=== PATIENT | female | born 2000 | race African-American/Black ===

== ENCOUNTER 2022-08-17 19:58 | Inpatient (IN) | payer SELFPAY ==
[~2022-08-17] VITALS: Ht 167.6 cm; Wt 74.2 kg
[2022-08-17 21:04] LABS: HEMOGLOBIN 12.3 g/dl (12.5-16.0); MEAN CELL VOLUME 87 fl (80.0-100.0); MEAN CORPUSCULAR HEMOGLOBIN 29 pg (27-31); MEAN CORPUSCULAR HGB CONC 33 g/dl (33.0-37.0); MEAN PLATELET VOLUME 10.7 fl (7.4-10.4); PLATELET COUNT 158 K/mm3 (130-400); RED BLOOD COUNT 4.23 M/mm3 (4.10-5.30); REDCELL DISTRIBUTION WIDTH-CV 12.8 % (11.5-14.5)
[2022-08-17 21:05] LABS: HEMATOCRIT 36.8 % (37.0-47.0)
[2022-08-17 21:20] LABS: ALBUMIN 3.5 gm/dL (3.5-5.0); CALCIUM 8.7 mg/dL (8.4-10.2); POTASSIUM 3.6 mmol/L (3.5-4.5); TOTAL PROTEIN 7.6 gm/dL (6.2-8.1)
[2022-08-17 21:24] LABS: MONOSCREEN POSITIVE
[2022-08-17 21:33] LABS: BILIRUBIN,TOTAL 0.8 mg/dL (0.2-1.2)
[2022-08-17 21:50] LABS: NEUTROPHILS 22 % (42.0-75.2)
[2022-08-17 21:51] LABS: HYPOCHROMIA 1+; PLATELET ESTIMATE NORMAL (NORMAL)
[2022-08-17 21:52] LABS: LYMPHOCYTE 76 % (20.0-51.0)
[2022-08-18] VITALS (9 sets, daily range): BP systolic 121–163; BP diastolic 61–88; PULSE 98–128; TEMP 98.4–103.8
[2022-08-18 00:17] LABS: COLLECTION METHOD CLEAN CATCH
[2022-08-18 00:31] LABS: PH 5.5 (5.0-8.5); URINE APPEARANCE Clear (CLEAR/HAZY); URINE BLOOD Negative (NEGATIVE); URINE COLOR Yellow (YELLOW); URINE GLUCOSE Negative (NEGATIVE); URINE KETONE 2+ (NEGATIVE); URINE NITRATE Negative (NEGATIVE); URINE PROTEIN(semi-quant) 1+ (NEGATIVE); URINE UROBILINOGEN 0.2 E.U/dL (0.2-1.0)
[2022-08-18 00:37] LABS: MUCOUS Present (NOT PRESENT); URINE BACTERIA Rare /hpf (NONE SEEN); URINE RBC 0-2 /hpf (0-2)
[2022-08-18 00:54] LABS: INR 1.3 (0.8-3.0); PROTHROMBIN TIME 14.6 SECONDS (9.7-12.8)
--- NOTE | 2022-08-18 02:30 | NUR ---
Reviewing orders, pt has tele order. Tele called, no boxes available at this time. Was told that they would call Kelli GARZA to determine who gets boxes. Pt admitted in the computer. Oriented pt to her room and educated her on visiting hours as well as how to order and room orientation. All questions answered, will continue to monitor Call light within reach
--- NOTE | 2022-08-18 05:30 | NUR ---
Pt did well through the night. Pt was woke recently for labs. Pt having complaints of pain in her right side, PRN pain medication given.
[2022-08-18 06:12] LABS: MEAN CELL VOLUME 89 fl (80.0-100.0); MEAN CORPUSCULAR HGB CONC 33 g/dl (33.0-37.0); MEAN PLATELET VOLUME 11.2 fl (7.4-10.4); PLATELET COUNT 133 K/mm3 (130-400)
[2022-08-18 06:15] LABS: HEMATOCRIT 30.3 % (37.0-47.0); MEAN CORPUSCULAR HEMOGLOBIN 29 pg (27-31)
[2022-08-18 06:19] LABS: CALCIUM 7.5 mg/dL (8.4-10.2); CREATININE, serum 0.77 mg/dL (0.57-1.11); POTASSIUM 3.7 mmol/L (3.5-4.5)
[2022-08-18 06:32] LABS: NEUTROPHILS 29 % (42.0-75.2); PLATELET ESTIMATE NORMAL (NORMAL)
[2022-08-18 06:33] LABS: LYMPHOCYTE 62 % (20.0-51.0)
--- NOTE | 2022-08-18 10:06 | NUR ---
Initial visit; Patient is concerned about her health issues and thanked Central Supply Tech for coming in to visit and pray for her. Central Supply Tech will continue to look in on Cecily and keep her in Central Supply Tech's prayers.
--- NOTE | 2022-08-18 21:06 | NUR ---
PT IS RESTING COMFORTABLY IN BED AT THIS TIME. X2 VISITORS IN ROOM. NO DISTRESS NOTED. PT APPEARS TO BE SLEEPING. NO COMPLAINTS OR VOICED CONCERNS FROM PARENT. REFUSED BREATHING TREATMENT. EDUCATED PT AND FAMILY THAT SHE WOULD BE ABLE TO CALL FOR ONE IF SHE NEEDED. PT WOKE UP WHEN LEAVING ROOM AND NOTIFIED ME THAT SHE WAS IN PAIN AND NEEDED PAIN MEDS. VAMSI COTA NOTIFIED. RN VERBALIZED UNDERSTANDING.
[2022-08-19] VITALS (7 sets, daily range): BP systolic 127–153; BP diastolic 73–84; PULSE 75–110; TEMP 97.7–102.9
[2022-08-19 06:26] LABS: BASO % 0.7 % (0.0-2.0); EOS % 0.2 % (0.0-4.0); GRAN # 1.8 K/mm3 (1.4-6.5); GRAN % 32.5 % (42.2-75.2); LYMPH # 3.1 K/mm3 (1.2-3.4); LYMPH % 56.1 % (20.0-51.0); MEAN CELL VOLUME 88 fl (80.0-100.0); MEAN CORPUSCULAR HGB CONC 34 g/dl (33.0-37.0); MEAN PLATELET VOLUME 10.9 fl (7.4-10.4); MONO # 0.6 K/mm3 (0.1-0.6); MONO % 10.3 % (1.7-9.3); PLATELET COUNT 118 K/mm3 (130-400); RED BLOOD COUNT 3.26 M/mm3 (4.10-5.30)
[2022-08-19 06:28] LABS: HEMATOCRIT 28.6 % (37.0-47.0); HEMOGLOBIN 9.7 g/dl (12.5-16.0); MEAN CORPUSCULAR HEMOGLOBIN 30 pg (27-31)
[2022-08-19 06:41] LABS: CALCIUM 7.8 mg/dL (8.4-10.2); CREATININE, serum 0.66 mg/dL (0.57-1.11); POTASSIUM 3.6 mmol/L (3.5-4.5)
--- NOTE | 2022-08-19 08:03 | NUR ---
Pt assessment complete. Pt is laying in bed upon entry, arouses to voice. She reports R sided generalized pain, states rib cage hurts to take a deep breath or cough. PRN Tylenol administered. She does report some SOB. No N/V at this time. IVF infusing. Call light within reach.
--- NOTE | 2022-08-19 11:54 | NUR ---
Rigging Helper rounds: First attempt at Rigging Helper visit Patient's Mother said that Patient was bathing. Second attempt at Rigging Helper visit Patient and Mother accepted visit. Patient was tired. She rested with her eyes closed but was not sleeping. Rigging Helper provided an opportunity for Patient's Mother (Sri) to share her concerns. Mother is primarily concerned for Patient's financial means after the hospital stay. Mother asked Rigging Helper about unemployment. Rigging Helper told Mother that she will follow up with social media strategist referral after visit. Mother expressed her thanks. Rigging Helper attempted to help with ordering some hash browns for Patient. There was no phone in the room. Mother asked for one from the nurses' station. A nurse brought a phone. Rigging Helper dialed the number, showing Mother where the phone number is on the wall and on the menu. Mother ordered for Patient. Father ordered food on his cell phone and left to go to a restaurant outside hospital to get it. It was during this time after Father left and Patient was resting that Mother and Rigging Helper had conversation. Rigging Helper encouraged Mother to care for herself- especially in getting enough sleep and eating properly. Mother stated that her baptism has prayer [id number] prayer chain for Patient. Rigging Helper provided Mother with a New Testament & Psalms and an older devotional. Mother expressed gratitude for those. Rigging Helper prayed for family. Rigging Helper saw Patient's food arrive not long after the visit ended.
--- NOTE | 2022-08-19 12:04 | NUR ---
Follow-up on Lay Ups Assembler visit with this Patient's Mother: Lay Ups Assembler spoke with Christianne at the Nurses' station about getting a Photographic Aide to speak with Patient's Mother regarding unemployment concerns. Christianne said that she would call the Photographic Aide.
[2022-08-19 13:56] LABS: HIV 1/2 Antibodies Non-Reactive; HIV-1p24 Antigen Non-Reactive
[2022-08-19 16:52] LABS: STREP SCREEN NEGATIVE
--- NOTE | 2022-08-19 18:56 | NUR ---
Pt had uneventful day, remained afebrile. Breathing on RA. Pain improved with PRN pain medications. On isolation awaiting lab results, patient and family updated with this. No needs at this time.
--- NOTE | 2022-08-19 22:25 | NUR ---
PRESENTED TO PATIENTS ROOM TO ADMIN BREATHING TREATMENT AND CHECK OXYGEN. PT STATES SHE DID NOT NEED A TREATMENT AT THIS TIME. PT NOTIFIED THAT IF SHE NEEDED TO ONE AND CHANGED HER MIND SHE WOULD BE ABLE TO CALL FOR ONE. NO SIGNS OF RESP DISTRESS NOTED.
[2022-08-20] VITALS (9 sets, daily range): BP systolic 125–146; BP diastolic 63–88; PULSE 82–121; TEMP 98.2–100.4
[2022-08-20 07:01] LABS: CALCIUM 8.1 mg/dL (8.4-10.2); CREATININE, serum 0.63 mg/dL (0.57-1.11); POTASSIUM 3.7 mmol/L (3.5-4.5)
[2022-08-20 07:02] LABS: BASO # 0.1 K/mm3 (0.0-0.2); BASO % 1.2 % (0.0-2.0); EOS # 0.1 K/mm3 (0.0-0.7); EOS % 2.2 % (0.0-4.0); GRAN # 1.4 K/mm3 (1.4-6.5); GRAN % 28.3 % (42.2-75.2); LYMPH # 2.9 K/mm3 (1.2-3.4); LYMPH % 57.3 % (20.0-51.0); MEAN CELL VOLUME 86 fl (80.0-100.0); MEAN CORPUSCULAR HGB CONC 34 g/dl (33.0-37.0); MEAN PLATELET VOLUME 11.3 fl (7.4-10.4); MONO # 0.5 K/mm3 (0.1-0.6); MONO % 10.8 % (1.7-9.3); PLATELET COUNT 146 K/mm3 (130-400); RED BLOOD COUNT 3.22 M/mm3 (4.10-5.30)
[2022-08-20 07:03] LABS: HEMATOCRIT 27.8 % (37.0-47.0); HEMOGLOBIN 9.5 g/dl (12.5-16.0); MEAN CORPUSCULAR HEMOGLOBIN 30 pg (27-31)
--- NOTE | 2022-08-20 08:00 | NUR ---
Patient laying in bed sleeping, easily awakened with verbal command. A&Ox3, drowsy. VSS. IV CDI. Denies pain and discomfort. Droplet/contact precautions in place. Call light within reach
--- NOTE | 2022-08-20 12:03 | NUR ---
Follow-up Carbon Setter visit: Patient is now on droplet precautions. Full PPE to visit. Mother Sri had ordered breakfast for Patient. Patient ate only bites and sips. Mother was preparing to [facility] services from her mandaeism. Carbon Setter joked with Patient that she was allowed to sleep through this sermon. We all had a laugh. Sri said that the Fruit Harvester Machine Operator did visit yesterday approximately 1600 and that the visit was helpful.
--- NOTE | 2022-08-21 03:39 | NUR ---
PT AT ABOUT 25% OF DINNER AT THIS TIME PATIENT HAD NO PAIN AND HAD SLIGHT FEVER OF 99.5 TYLENOL WAS GIVEN TO MAINTAIN LOW GRADE TEMP. PATIENT HAD PAIN IN HER RT MIDDLE BACK DILAUDID WAS GIVEN TO TX PAIN. PAIN WENT DOWN TO 6 BUT BY 2344 IT WAS BACK TO AN 8 ICE PACK WAS GIVEN TO HELP. PATIENT THEN WAS ABLE TO REST WITH CALL LIGHT AND PERSONAL ITEMS WITHIN REACH.
[2022-08-21 04:12] VITALS: BP 112/60; PULSE 73; TEMP 98.2
[2022-08-21 07:19] LABS: EOS # 0.1 K/mm3 (0.0-0.7); EOS % 3.4 % (0.0-4.0); GRAN % 24.3 % (42.2-75.2); LYMPH # 2.4 K/mm3 (1.2-3.4); LYMPH % 59.8 % (20.0-51.0); MEAN CELL VOLUME 88 fl (80.0-100.0); MEAN CORPUSCULAR HGB CONC 33 g/dl (33.0-37.0); MEAN PLATELET VOLUME 10.4 fl (7.4-10.4); MONO # 0.5 K/mm3 (0.1-0.6); MONO % 11.3 % (1.7-9.3); PLATELET COUNT 178 K/mm3 (130-400)
[2022-08-21 07:33] VITALS: BP 1149/62; BP 119/68; PULSE 81; TEMP 98
[2022-08-21 07:34] LABS: CALCIUM 8.1 mg/dL (8.4-10.2); CREATININE, serum 0.62 mg/dL (0.57-1.11); POTASSIUM 3.3 mmol/L (3.5-4.5)
[2022-08-21 07:35] LABS: HEMOGLOBIN 9.1 g/dl (12.5-16.0); MEAN CORPUSCULAR HEMOGLOBIN 28 pg (27-31)
--- NOTE | 2022-08-21 09:26 | NUR ---
Incident Response Specialist met with PAtient at bedside to conduct Care Managment Assessment and conduct discharge planning. Patient lives a lone in [place], [place] with family supports living in [place], [place] Mother:P [phone] and Father P: [phone]. PAtient is not established with PCP or medical insurance. Patient is to discharge home. Discharge Plan: Home with self-aquired transportation.
--- NOTE | 2022-08-21 11:15 | NUR ---
Patient was on bed and drowsy at 0800 when this nurse entered the room. Patient said that she has pain of rating 7/10, but denied any need of pain medication at this time. This nurse followed after an hour and found her alert and oriented x4. Pain rating is still 7/10, but said she doesn't need any pain meds at this time. Patient's mom is in the room, bed is in lowest position, call light is on place.
[2022-08-21 11:30] VITALS: BP 139/70; PULSE 89; TEMP 98.3
[2022-08-21 13:55] LABS: HEMATOCRIT 30.4 % (37.0-47.0); HEMOGLOBIN 10.3 g/dl (12.5-16.0)
[2022-08-21 15:37] VITALS: BP 123/78; PULSE 108; TEMP 100.5
[2022-08-21 20:24] VITALS: BP 128/77; PULSE 103; TEMP 99.7
[2022-08-22 00:26] VITALS: BP 118/65; PULSE 107; TEMP 99
[2022-08-22 04:38] VITALS: BP 110/78; PULSE 81; TEMP 97.9
--- NOTE | 2022-08-22 06:09 | NUR ---
PT THROUGHOUT THE NIGHT HAD HGIHEST FEVER OF 99.7 THIS SHIFT. ALSO STATED HAVING PAIN AT 10 TREATED WITH MOTRIN AND ICEPACK BROUGHT DOWN TO 7. BY 0500 PAIN WAS AT 5 PT GIVEN TYLENOL. PATIENT RESTED IN LOW BED AND CALL LIGHT WITHIN REACH.
[2022-08-22 06:57] LABS: BASO % 0.6 % (0.0-2.0); EOS # 0.1 K/mm3 (0.0-0.7); EOS % 2.5 % (0.0-4.0); GRAN # 1.3 K/mm3 (1.4-6.5); GRAN % 26.9 % (42.2-75.2); HEMOGLOBIN 10.1 g/dl (12.5-16.0); LYMPH # 2.7 K/mm3 (1.2-3.4); LYMPH % 57.2 % (20.0-51.0); MEAN CELL VOLUME 87 fl (80.0-100.0); MEAN CORPUSCULAR HEMOGLOBIN 29 pg (27-31); MEAN CORPUSCULAR HGB CONC 34 g/dl (33.0-37.0); MEAN PLATELET VOLUME 10.3 fl (7.4-10.4); MONO # 0.6 K/mm3 (0.1-0.6); MONO % 12.6 % (1.7-9.3); PLATELET COUNT 230 K/mm3 (130-400); RED BLOOD COUNT 3.46 M/mm3 (4.10-5.30); REDCELL DISTRIBUTION WIDTH-CV 13.3 % (11.5-14.5)
[2022-08-22 07:01] LABS: HEMATOCRIT 30.1 % (37.0-47.0)
[2022-08-22 07:02] LABS: CALCIUM 8.7 mg/dL (8.4-10.2); CREATININE, serum 0.66 mg/dL (0.57-1.11); POTASSIUM 3.9 mmol/L (3.5-4.5)
[2022-08-22 08:30] VITALS: BP 123/64; PULSE 98; TEMP 97.7
[2022-08-22] MEDS ORDERED: ELIQUIS 5MG PO (09:30)
--- NOTE | 2022-08-22 10:01 | NUR ---
Restaurant District Manager contacted [facility] to establish follow-on care post acute hospital admission. Appointment scheduled for 08-29-22 @1000. Patient notified.
[2022-08-22 10:59] LABS: ANTI-THROMBIN III 78 % (72-128)
[2022-08-22 11:51] VITALS: BP 132/64; PULSE 104; TEMP 98.3
--- NOTE | 2022-08-22 12:59 | NUR ---
Follow-up: Cecily depressed about not being able to go home today. Mechanics Supervisor offered a Birch [employer] and asked that she let Mechanics Supervisor know how she is doing when she does leave but in the meantime Mechanics Supervisor will check on her. Cecily will remain in Mechanics Supervisor's prayers.
[2022-08-22 13:19] LABS: EBV NUCLEAR ANTIGEN IGG Negative (Negative)
[2022-08-22 13:30] LABS: EBV IGM AB Positive (Negative)
[2022-08-22 13:32] LABS: EBV EARLY ANTIGEN IGG Positive (Negative)
[2022-08-22 16:04] VITALS: BP 124/61; PULSE 116; TEMP 100.2
--- NOTE | 2022-08-22 17:35 | NUR ---
Patient is discharged at home with her parents. IV is removed. Discharge instruction is reviewed with patient and her family. Education is provided about followups, medication, and disease process. Patient and family were escorted to their vehicle by this nurse.
[2022-08-29] MEDS ORDERED: COUMADIN 5MG5 MG/TAB PO (10:22)
[2022-08-29] MEDS ORDERED: LOVENOX120 MG/0.8 SQ (10:23)
[2022-08-29] MEDS ORDERED: NORCO 325 MG-51 TAB PO (12:25)
[2022-08-29] MEDS ORDERED: COUMADIN 1MG1 MG/TAB PO (14:25)
== END 2022-08-22 16:55 | disposition home or self-care (01) | DRG 871 ==
LOC: COL.ER 19:58 → MEDICAL 08-18 00:34
PROVIDERS: Nurse Practitioner Family; Physician Assistant; ADMIT Student in an Organized Health Care Education/Training Program
DX: A41.9 Sepsis, unspecified organism (principal); I26.99 Other pulmonary embolism without acute cor pulmonale; J18.9 Pneumonia, unspecified organism; E87.20 Acidosis, unspecified; J90 Pleural effusion, not elsewhere classified; D69.6 Thrombocytopenia, unspecified; D64.9 Anemia, unspecified; E87.6 Hypokalemia; B27.90 Infectious mononucleosis, unspecified without complication; M79.10 Myalgia, unspecified site; Z20.822 Contact with and (suspected) exposure to COVID-19; R73.9 Hyperglycemia, unspecified; Z79.01 Long term (current) use of anticoagulants
CPT/HCPCS: J0696; J1170; J1650; J2270; J2405; J2550; J7030; Q9967

== ENCOUNTER 2022-09-01 14:13 | Emergency (ER) | payer SELFPAY ==
[~2022-09-01] VITALS: Ht 167.6 cm; Wt 73.2 kg
[2022-09-01 14:22] VITALS: TEMP 98.3
[2022-09-01 15:00] LABS: BASO # 0.1 K/mm3 (0.0-0.2); BASO % 1.6 % (0.0-2.0); EOS # 0.1 K/mm3 (0.0-0.7); EOS % 1.6 % (0.0-4.0); GRAN # 2.1 K/mm3 (1.4-6.5); GRAN % 36.6 % (42.2-75.2); HEMOGLOBIN 11.6 g/dl (12.5-16.0); LYMPH % 51.8 % (20.0-51.0); MEAN CELL VOLUME 90 fl (80.0-100.0); MEAN CORPUSCULAR HEMOGLOBIN 29 pg (27-31); MEAN CORPUSCULAR HGB CONC 32 g/dl (33.0-37.0); MEAN PLATELET VOLUME 9.6 fl (7.4-10.4); MONO # 0.5 K/mm3 (0.1-0.6); MONO % 7.9 % (1.7-9.3); PLATELET COUNT 413 K/mm3 (130-400); RED BLOOD COUNT 4.04 M/mm3 (4.10-5.30); REDCELL DISTRIBUTION WIDTH-CV 13.8 % (11.5-14.5)
[2022-09-01 15:02] LABS: INR 1.9 (0.8-3.0); PROTHROMBIN TIME 22.3 SECONDS (9.7-12.8)
[2022-09-01 15:04] LABS: HEMATOCRIT 36.2 % (37.0-47.0); PARTIAL THROMBOPLASTIN TIME 39.3 SECONDS (26.0-37.0)
[2022-09-01 15:12] LABS: ALBUMIN 3.6 gm/dL (3.5-5.0); BILIRUBIN,TOTAL 0.4 mg/dL (0.2-1.2); CALCIUM 9.6 mg/dL (8.4-10.2); CREATININE, serum 0.81 mg/dL (0.57-1.11); POTASSIUM 3.9 mmol/L (3.5-4.5); TOTAL PROTEIN 7.6 gm/dL (6.2-8.1)
--- NOTE | 2022-09-01 15:23 | NUR ---
Sw notified by patients RN that patient returns to ED following abnormal lab values. Phone call made to 's office to see if the patient is able to establish with an earlier appointment aside from 09/18. Per Bridget, project scheduler for , the patient can be placed on their cancellation list but will not know of any cancellations until Sun.09/06
[2022-09-01 17:00] VITALS: BP 126/83; PULSE 73
== END 2022-09-01 17:00 | disposition home or self-care (01) ==
LOC: COL.ER 14:13
PROVIDERS: Emergency Medicine
DX: I26.99 Other pulmonary embolism without acute cor pulmonale (principal); R74.01 Elevation of levels of liver transaminase levels; Z79.01 Long term (current) use of anticoagulants; Z51.81 Encounter for therapeutic drug level monitoring; Z28.311 Partially vaccinated for COVID-19

== ENCOUNTER → 2022-09-01 | Outpatient (CLI) | payer SELFPAY ==
[~2022-09-01] MED LIST: COUMADIN 1MG1 MG/TAB PO; COUMADIN 5MG5 MG/TAB PO; ELIQUIS 5MG PO; LOVENOX120 MG/0.8 SQ; NORCO 325 MG-51 TAB PO
== END ==
LOC: COL.LAB 13:29
DX: Z01.89 Encounter for other specified special examinations (principal)

== ENCOUNTER 2023-11-22 16:28 | Inpatient (IN) | payer BC, MEDICAID ==
[~2023-11-22] VITALS: Ht 167.6 cm; Wt 97.3 kg
[~2023-11-22 16:28] MED LIST changes: +ZOFRAN ODT4 MG PO
--- NOTE | 2023-11-22 16:40 | NUR ---
Pt arrived on unit ambulatory with concerns for decreased movement and contractions. Pt reports last movement was yesterday and contractions have been happening since this morning. EFM and toco monitors were started. Maternal vital signs WNL. Dr. Echevarria notified. See physician notification for details.
[2023-11-22 17:00] VITALS: BP 142/79; PULSE 62; TEMP 97.8
[2023-11-22] MEDS ORDERED: LR 1,000 ML IV PRN (17:30)
[2023-11-22] MEDS ORDERED: PRENATAL TABLET PO (17:43)
[2023-11-22] MEDS ORDERED: Betamethasone Acetate/Na Phos 6 MG/ML 5 ML MDV IM ONE (17:45)
[2023-11-22] MEDS ORDERED: LR 1,000 ML IV SCH (17:45)
[2023-11-22 17:54] LABS: BASO % 0.2 % (0.0-2.0); EOS # 0.1 K/mm3 (0.0-0.7); EOS % 0.6 % (0.0-4.0); GRAN # 4.6 K/mm3 (1.4-6.5); LYMPH # 2.8 K/mm3 (1.2-3.4); LYMPH % 33.7 % (20.0-51.0); MEAN CELL VOLUME 89 fl (80.0-100.0); MEAN CORPUSCULAR HEMOGLOBIN 29 pg (27-31); MEAN CORPUSCULAR HGB CONC 33 g/dl (33.0-37.0); MEAN PLATELET VOLUME 11.7 fl (7.4-10.4); MONO # 0.8 K/mm3 (0.1-0.6); MONO % 10.1 % (1.7-9.3); PLATELET COUNT 248 K/mm3 (130-400); RED BLOOD COUNT 3.75 M/mm3 (4.10-5.30)
[2023-11-22 17:56] LABS: HEMATOCRIT 33.4 % (37.0-47.0)
[2023-11-22 19:00] VITALS: PULSE 85; TEMP 98.1
[2023-11-22 19:30] VITALS: BP 146/83; PULSE 76
--- NOTE | 2023-11-22 19:54 | NUR ---
[address] DR ESTRADAURE OFFICE CORRESPONDENT WITH DR BELTRAN IN [place] TO DISCUSS OPTIONS. ALL DR AGREE THAT [facility] IS TO TRANSFER PATIENT TO [place] FOR DELIVERY WITH HIGHER LEVEL OF CARE
[2023-11-22 20:00] VITALS: BP 154/74; PULSE 74
--- NOTE | 2023-11-22 20:30 | NUR ---
1950 LATE DECEL NOTED AT THIS TIME. FHT 150. PATIENT IS FEELING MOVEMENT AT THIS TIME. DR WILSON HERE
--- NOTE | 2023-11-22 20:32 | NUR ---
2005 [facility] [employer]W AT BEDSIDE FOR TRANSFER TO [facility] TO DR BELTRAN. FULL REPORT GIVEN TO CLIENT LIAISON AND PATIENT TRANSFERRED TO [facility] AND DISMISSED WITH CLIENT LIAISON AND [employer]W. PATIENT DENIES NEEDS FHT 150
--- NOTE | 2023-11-22 20:38 | NUR ---
[facility] CALLED AND FULL REPORT GIVEN TO NATALIIA AGUSTIN.
[2023-11-22 21:07] LABS: TRICYCLIC ANTIDEPRESS URINE NEGATIVE (NEGATIVE)
== END 2023-11-22 20:38 | disposition short-term general hospital (02) | DRG 832 ==
LOC: LDRO 16:28 → LDR 17:19
PROVIDERS: Student in an Organized Health Care Education/Training Program; ADMIT Obstetrics & Gynecology
DX: O36.8330 Maternal care for abnormalities of the fetal heart rate or rhythm, third trimester, not applicable or unspecified (principal); D68.51 Activated protein C resistance; O99.113 Other diseases of the blood and blood-forming organs and certain disorders involving the immune mechanism complicating pregnancy, third trimester; O99.013 Anemia complicating pregnancy, third trimester; D64.9 Anemia, unspecified; O36.23X0 Maternal care for hydrops fetalis, third trimester, not applicable or unspecified; O32.1XX0 Maternal care for breech presentation, not applicable or unspecified; Z3A.29 29 weeks gestation of pregnancy; Z86.711 Personal history of pulmonary embolism; Z87.01 Personal history of pneumonia (recurrent)
CPT/HCPCS: J0702; J7120